=== PATIENT | female | born 1945 | race Caucasian/White ===

== ENCOUNTER → 2019-04-14 | Outpatient (CLI) | payer OTHER ==
[~2019-04-14] MED LIST: ADVAIR 2501 DISK W/1 IH; ALBUTEROL2.5 MG/3 M IH; CARDIZEM CD180 M1 PO; CARDIZEM60 MG PO; ISORDIL10 MG PO; PLAVIX75 MG PO; SINGULAIR 10MG10 MG PO; SINGULAIR10 MG PO; UNIPHYL400 MG PO; XOPENEX0.63 MG/3 IH; ZOCOR20 MG PO
== END | disposition home or self-care (01) ==
LOC: NUCLEAR 08:56
DX: R91.8 Other nonspecific abnormal finding of lung field (principal)
CPT/HCPCS: 78816; A9552